=== PATIENT | female | born 1990 | race Caucasian/White ===

== ENCOUNTER 2016-11-03 04:09 | Emergency (ER) | payer OTHER ==
[~2016-11-03] VITALS: Ht 170.2 cm; Wt 66.0 kg
[~2016-11-03 04:09] MED LIST: ALBU17I INH; ALBU6.7H INH; MACR100C PO; PYRI200T4 PO; Z.0.BCPILL PO
[2016-11-03 04:10] VITALS: BP 155/99; PULSE 84; RESP 16; TEMP 98.1; O2SAT 99
[2016-11-03 04:24] VITALS: BP 121/67
[2016-11-03] MEDS ORDERED: ALBU.5I NEB (04:29)
[2016-11-03] MEDS ORDERED: ALBU6.7H INH (04:29)
[2016-11-03] MEDS ORDERED: PENI500T PO (04:35)
--- NOTE | 2016-11-03 04:39 | PD ---
HPI Chief Complaint: Cold / Flu Symptoms Time Seen by Provider: 04:26 Travel History International Travel<30 days: No Contact w/Intl Traveler<30days: No Traveled to known affect area: No History of Present Illness HPI 26-year-old white female who states that she is approximately 6 weeks presents to emergency department with a three-day history of sore throat. She states that in addition to her sore throat today she developed a low-grade temperature 100. She admits to feeling general malaise, nausea and upset stomach, cough, nasal congestion. She states that she assumes a lot of her symptoms are associated with early . She denies vomiting. No abdominal pain. No leakage of fluid or abnormal bleeding. No urinary symptoms. No shortness of breath or wheezing. PFSH Past Medical History Asthma: Yes Cardiovascular Problems: Yes (MURMUR, LOOP RECORDER IN PLACE) Diminished Hearing: No Genitourinary: Yes (FREQ UTI's) Immunizations Current: Yes ?: : 3 Para: 1 Miscarriage: 1 Past Surgical History Section: Yes Social History Alcohol Use: No Tobacco Use: No Substance Use: No Allergies-Medications (Allergen,Severity, Reaction): Coded Allergies: metronidazole (Verified Allergy, Severe, 11/03/16) Reported Meds & Prescriptions Reported Meds & Active Scripts Active Reported Albuterol Neb (Albuterol Sulfate) 2.5 Mg/0.5 Ml Neb 2.5 Mg NEB Q4HR NEB PRN Note: The Albuterol Sulfate Inhalation Solution is concentrated and must be diluted. Read complete instructions carefully before using. Proventil Hfa 6.7 GM Inh (Albuterol Sulfate) 90 Mcg/Act Aer 2 Puff INH Q6H PRN Review of Systems Except as stated in HPI: all other systems reviewed are Neg Physical Exam Narrative GENERAL: Well-developed, well-nourished in no acute distress. Nontoxic appearing. HEAD: Normocephalic, atraumatic. EYES: Pupils equal round and reactive. Extraocular motions intact. No scleral icterus. No injection or drainage. ENT: TMs clear without erythema. The external auditory canals clear. Nose: clear . Posterior pharynx is pink and moist. No tonsillar edema or exudate. Uvula midline. Airway patent. NECK: Trachea midline.Supple, nontender, moves head freely. No central bony tenderness or spasm. CARDIOVASCULAR: Regular rate and rhythm without murmurs, gallops, or rubs. RESPIRATORY: Clear to auscultation. Breath sounds equal bilaterally. No wheezes , rales, or rhonchi. GASTROINTESTINAL: Abdomen soft, non-tender, nondistended. No hepato-splenomegaly , or palpable masses. No guarding. EXTREMITIES: No clubbing, cyanosis, or edema. No joint tenderness, effusion, or edema noted. BACK: Nontender without deformity or crepitance. No flank tenderness. Data Data Last Documented VS Vital Signs Date Time Temp Pulse Resp B/P (MAP) Pulse Ox O2 Delivery O2 Flow Rate FiO2 11/03/16 04:24 121/67 (85) 11/03/16 04:10 98.1 84 16 99 Room Air Orders Orders Penicillin V Potassium (Veetids) (11/03/16 04:45) Acetaminophen (Tylenol) (11/03/16 04:45) MDM Medical Decision Making Medical Screen Exam Complete: Yes Emergency Medical Condition: Yes Medical Record Reviewed: Yes Differential Diagnosis MDM: High Differential diagnoses: Strep throat, viral pharyngitis, mono Narrative Course Patient is given Pen-Vee K 500 and Tylenol 500 mg by mouth. This acute pharyngitis Diagnosis Primary Impression: Acute pharyngitis Qualified Codes: J02.8 - Acute pharyngitis due to other specified organisms Patient Instructions: General Instructions Additional Instructions: Rest. Force fluids. Saltwater gargles. Tylenol. Pen-Vee K Follow-up with a primary care doctor in one week. Return to the ER if any problems. Med/Other Pt SpecificInfo: Prescription(s) given Scripts Penicillin V Potassium (Penicillin V Potassium) 500 Mg Tab 500 MG PO Q12HR for Infection, #20 TAB 0 Refills Prov: Sandhya Sanabria MD 11/03/16 Disposition: 01 DISCHARGE HOME Condition: Stable Jadiel Lowe Nov 03, 2016 04:39
[2016-11-03] MEDS ORDERED: PENICILLIN V POTASSIUM 500 MG TAB PO ONE (04:45)
[2016-11-03] MEDS ORDERED: ACETAMINOPHEN 500 MG CPLT PO ONE (04:45)
== END 2016-11-03 04:57 | disposition home or self-care (01) ==
LOC: NEPD 04:09
DX: J02.9 Acute pharyngitis, unspecified (principal); R53.81 Other malaise; R11.0 Nausea; K30 Functional dyspepsia; R05 Cough; R09.81 Nasal congestion; J45.909 Unspecified asthma, uncomplicated; Z34.91 Encounter for supervision of normal pregnancy, unspecified, first trimester; Z3A.01 Less than 8 weeks gestation of pregnancy
CPT/HCPCS: 99283

== ENCOUNTER 2017-04-23 12:15 | Emergency (ER) | payer MEDICAID, OTHER ==
[~2017-04-23 12:15] MED LIST changes: +ALBU.5I NEB; -ALBU17I INH; -MACR100C PO; +PENI500T PO; -PYRI200T4 PO; -Z.0.BCPILL PO
[2017-04-23] MEDS ORDERED: LACTATED RINGER'S 1000 ML INJ 1,000 ML IV SCH (14:30)
[2017-04-23] MEDS ORDERED: TERBUTALINE INJ 1 MG/ML AMP SQ ONE (14:30)
[2017-04-23] MEDS ORDERED: ONDANSETRON HCL 4 MG/2 ML VIAL IV PUSH ONE (14:30)
[2017-04-23] MEDS ORDERED: PROT40TA PO (14:38)
[2017-04-23 14:39] LABS: HEMATOCRIT 35.4 % (35.0-46.0); HEMOGLOBIN 12.2 GM/DL (11.6-15.3); MEAN CELL VOLUME 89.5 FL (80.0-100.0); MEAN CORPUSCULAR HEMOGLOBIN 30.9 PG (27.0-34.0); MEAN CORPUSCULAR HGB CONC 34.5 % (32.0-36.0); MEAN PLATELET VOLUME 9.7 FL (7.0-11.0); PLATELET COUNT 228 TH/MM3 (150-450); RED BLOOD COUNT 3.95 MIL/MM3 (4.00-5.30); RED CELL DISTRIBUTION WIDTH 13.7 % (11.6-17.2); WHITE BLOOD COUNT 13.4 TH/MM3 (4.0-11.0)
[2017-04-23] MEDS ORDERED: PROM25TA10 PO (14:40)
--- NOTE | 2017-04-23 14:40 | PD ---
HPI Chief Complaint Headache, epigastric pain, heartburn Date Seen: Apr 23, 2017 Time Seen: 14:00 Travel History International Travel<30 Days: No Contact w/Intl Traveler<30Days: No Known Affected Area: No History of Present Illness HPI This patient is a 26-year-old white female at [address] Mcdowell care previous for severe preeclampsia at 29 weeks in the last she presents claiming of a persistent frontal headache, some epigastric pain and heartburn relieved with [id number] Zantac. Denies right upper quadrant pain swelling, visual changes. Baby is active heart rate tracing is reactive and there are relatively regular contractions noted on the monitor if the patient is really not noticing except that she says her stomach gets tight. Weeks Gestation: 30 Para: 1 : 3 Last Menstrual Period: Apr 23, 2017 Miscarriage: 1 History Obstetric History Obstetric History At 29 weeks patient last is emergency for severe preeclampsia Past Surgical History Narrative Surgical Surgical History: No Previous Surgery Social History Alcohol Use: No Tobacco Use: No Substance Abuse: No Allergies-Medications (Allergen,Severity, Reaction): Coded Allergies: metronidazole (Verified Allergy, Severe, 11/03/16) Home Meds Active Scripts Penicillin V Potassium (Penicillin V Potassium) 500 Mg Tab, 500 MG PO Q12HR for Infection, #20 TAB 0 Refills Prov:Sandhya Sanabria MD 11/03/16 Reported Medications Albuterol Neb (Albuterol Neb) 2.5 Mg/0.5 Ml Neb, 2.5 MG NEB Q4HR NEB Y for SHORTNESS OF BREATH, EA Note: The Albuterol Sulfate Inhalation Solution is concentrated and must be diluted. Read complete instructions carefully before using. 11/03/16 Albuterol 6.7 GM Inh (Proventil Hfa 6.7 GM Inh) 90 Mcg/Act Aer, 2 PUFF INH Q6H Y for SHORTNESS OF BREATH, #1 INHALER 0 Refills 11/03/16 Review of Systems General / Constitutional: No: Fever, Weight Gain, Chills, Other Eyes: No: Diploplia, Blurred Vision, Visual changes, Pain, Photophobia HENT: Headaches, No: Vertigo, Lightheadedness Cardiovascular: No: Irregular Rhythm, Chest Pain or Discomfort, Palpitations, Tachycardia, Syncope, Varicosities, Edema, Cyanosis Respiratory: No: Cough, Short of Breath, Other Gastrointestinal: Indigestion, No: Nausea, Vomiting, Diarrhea Genitourinary: No: Decreased Urinary Output, Oliguria Musculoskeletal: No: Limited ROM, Weakness, Cramping, Edema, Pain Skin: No Rash, No Itching, No Dryness, No Lumps, No Change in Pigmentation, No Change in Nails, No Alopecia, No Lesions Neurologic: No: Weakness, Dizziness, Syncope, Focal Abnormalities, Coordination Problem, Headache, Slurred Speech, Seizures Psychiatric: No: Depression, Suicidal Ideations, Homicidal Ideation Endocrine: No: Heat Intolerance, Cold Intolerance, Polydipsia, Polyuria, Other Physical Exam Narrative GENERAL: Well-nourished, well-developed patient. SKIN: Warm and dry. HEAD: Normocephalic and atraumatic. EYES: No scleral icterus. No injection or drainage. ENT: No nasal drainage noted. Mucous membranes pink. Airway patent. NECK: Supple, trachea midline. No JVD. CARDIOVASCULAR: Regular rate and rhythm without murmurs, gallops, or rubs. RESPIRATORY: Breath sounds equal bilaterally. No accessory muscle use. BREASTS: Bilateral exam showed no masses , no retractions, no nipple discharge. ABDOMEN/GI: Abdomen soft, non-tender, bowel sounds present, no rebound, no guarding Gravid to [-30] weeks size Fundal Height: [30-] GENITOURINARY: External Genitalia: intact and normal in appearance BUS glands: [-] Cervix: [post-] Dilatation: [0-] Effacement: [0-] Station: [-3] Membranes: [intact ] Uterine Contractions: [-q 3min initially] FHT's: Category: [-1] Baseline: [133-] Reactive: [R-] Variability: [-mod] Decels: [none-] EXTREMITIES: No cyanosis or edema. BACK: Nontender without obvious deformity. No CVA tenderness. NEUROLOGICAL: Awake and alert. Motor and sensory grossly within normal limits. Five out of 5 muscle strength in all muscle groups. Normal speech. Data Data Orders Orders Cbc No Diff, Includes Plts (04/23/17 13:12) Comprehensive Metabolic Panel (04/23/17 13:13) Uric Acid (04/23/17 13:13) Vital Signs (Adult) .ON ADMISSION (04/23/17 13:33) ^ Labor Status (04/23/17 13:33) ^ Non Stress Test (04/23/17 13:33) ^ Hydration (04/23/17 13:33) Lactated Ringer's 1000 Ml Inj (Lr 1000 M (04/23/17 13:33) Ondansetron Inj (Zofran Inj) (04/23/17 13:45) Terbutaline Inj (Brethine Inj) (04/23/17 13:45) Fentanyl Inj (Fentanyl Inj) (04/23/17 13:45) Labs Urine dip on OPD is negative for protein MDM Interpretation(s) Patient is 26-year-old white female at [address] Mcdowell care. Patient's previous section for previous severe preeclampsia 29 weeks. She has been followed closely this Dr. Mcdowell is worried she might try to get preeclamptic again because she had headaches and epigastric pain. However blood pressures are normal 120/50 111/60 120/62. She has no protein in urine, PIH lab is negative However she was ruth every 3 minutes and felt that these needed to be addressing that she was really feeling much this filter may be balling up getting tight and she was ruth on the monitor so she received the basic triage tocolyse with IV fluids subcu TERB and IV fentanyl. Plan Patient received above-mentioned tocolytics. The contractions decreased and are this point not an issue for her, heart tones are still within normal limits. Lab all within normal limits her blood pressures is totally normal plan to give the patient prescription for Protonix needed a prescription antacid as well as some p.o. Phenergan for nausea noted at home. And she will follow up with Dr. Mcdowell Diagnosis Diagnosis: Primary Impression: Headache above the eye region Additional Impressions: Threatened premature labor in third trimester Previous section Disposition: 01 DISCHARGE HOME Condition: Stable Scripts Promethazine (Phenergan) 25 Mg Tablet 25 MG PO Q6H Y for NAUSEA OR VOMITING for 10 Days, #60 TAB 1 Refill Prov: Ubaldo Bernal II, MD 04/23/17 Pantoprazole (Protonix) 40 Mg Tab 40 MG PO DAILY for Reflux for 30 Days, #30 TAB 1 Refill Prov: Ubaldo Bernal II, MD 04/23/17 Ubaldo Bernal II, MD Apr 23, 2017 14:40
[2017-04-23 15:03] LABS: ALBUMIN 3.3 GM/DL (3.4-5.0); AST (GOT) 20 U/L (15-37); BICARBONATE 22.4 MEQ/L (21.0-32.0); BLOOD UREA NITROGEN 5 MG/DL (7-18); CALCIUM 9.3 MG/DL (8.5-10.1); CHLORIDE 103 MEQ/L (98-107); CREATININE 0.46 MG/DL (0.50-1.00); GLOMERULAR FILTRATION RATE 164 ML/MIN (>89); GLUCOSE,RANDOM 68 MG/DL (74-106); SODIUM (NA) 137 MEQ/L (136-145)
[2017-04-23 15:04] LABS: ALT (GPT) 25 U/L (10-53)
[2017-04-23 15:07] LABS: ALKALINE PHOSPHATASE 141 U/L (45-117); TOTAL BILIRUBIN ADULT 0.2 MG/DL (0.2-1.0); TOTAL PROTEIN 7.8 GM/DL (6.4-8.2)
[2017-04-23 15:19] VITALS: BP 127/63; PULSE 72
== END 2017-04-23 15:30 | disposition home or self-care (01) ==
LOC: HOBED 12:15
DX: O26.893 Other specified pregnancy related conditions, third trimester (principal); R51 Headache; O47.03 False labor before 37 completed weeks of gestation, third trimester; Z3A.30 30 weeks gestation of pregnancy; Z88.8 Allergy status to other drugs, medicaments and biological substances
CPT/HCPCS: 80053; 84550; 85027; 96372; 96374; 96375; 99284; J2405; J3010; J3105; J7120

== ENCOUNTER 2017-04-25 15:16 | Emergency (ER) | payer MEDICAID ==
[~2017-04-25] VITALS: Ht 170.2 cm; Wt 72.6 kg
[~2017-04-25 15:16] MED LIST changes: +PROM25TA10 PO; +PROT40TA PO
[2017-04-25] MEDS ORDERED: ONDANSETRON ODT 4 MG TAB PO PRN (16:30)
[2017-04-25] MEDS ORDERED: CALCIUM CARBONATE 500 MG CHEWABLE TAB CHEW PRN (16:30)
[2017-04-25] MEDS ORDERED: TERBUTALINE INJ 1 MG/ML AMP SQ ONE (18:15)
--- NOTE | 2017-04-25 19:04 | PD ---
HPI Chief Complaint heartburn ctxs Date Seen: Apr 25, 2017 Time Seen: 18:58 Travel History International Travel<30 Days: No Contact w/Intl Traveler<30Days: No Known Affected Area: No History of Present Illness HPI pt. is a @ 30 3/7 weeks present w/ c/o heartburn and ctxs. pt. states was here before for heartburn and ctxs, given zofran, terb and hydrated and felt much better. pt. states that began having heartburn again with and ctxs again today. pt. sttes minimal relief with meds taken at home. +FM, no lof/vb Weeks Gestation: 30 Para: 1 : 2 History Past Medical History Medical History: Denies Significant Hx Past Surgical History Surgical History: No Previous Surgery Family History Family History: Negative Social History Alcohol Use: No Tobacco Use: No Substance Abuse: No Allergies-Medications (Allergen,Severity, Reaction): Coded Allergies: metronidazole (Verified Allergy, Severe, 11/03/16) Home Meds Active Scripts Promethazine (Phenergan) 25 Mg Tablet, 25 MG PO Q6H Y for NAUSEA OR VOMITING for 10 Days, #60 TAB 1 Refill Prov:Ubaldo Bernal II, MD 04/23/17 Pantoprazole (Protonix) 40 Mg Tab, 40 MG PO DAILY for Reflux for 30 Days, #30 TAB 1 Refill Prov:Ubaldo Bernal II, MD 04/23/17 Reported Medications Albuterol Neb (Albuterol Neb) 2.5 Mg/0.5 Ml Neb, 2.5 MG NEB Q4HR NEB Y for SHORTNESS OF BREATH, EA Note: The Albuterol Sulfate Inhalation Solution is concentrated and must be diluted. Read complete instructions carefully before using. 11/03/16 Albuterol 6.7 GM Inh (Proventil Hfa 6.7 GM Inh) 90 Mcg/Act Aer, 2 PUFF INH Q6H Y for SHORTNESS OF BREATH, #1 INHALER 0 Refills 11/03/16 Discontinued Scripts Penicillin V Potassium (Penicillin V Potassium) 500 Mg Tab, 500 MG PO Q12HR for Infection, #20 TAB 0 Refills Prov:Sandhya Sanabria MD 11/03/16 Review of Systems Except as stated in HPI: all other systems reviewed are Neg Physical Exam Narrative GENERAL: Well-nourished, well-developed patient. SKIN: Warm and dry. HEAD: Normocephalic and atraumatic. EYES: No scleral icterus. No injection or drainage. ENT: No nasal drainage noted. Mucous membranes pink. Airway patent. NECK: Supple, trachea midline. No JVD. CARDIOVASCULAR: Regular rate and rhythm without murmurs, gallops, or rubs. RESPIRATORY: Breath sounds equal bilaterally. No accessory muscle use. ABDOMEN/GI: Abdomen soft, non-tender, bowel sounds present, no rebound, no guarding Gravid GENITOURINARY: FHT's/ TOCO: Category: 1 Reactive: + Variability: mod Decels: none EXTREMITIES: No cyanosis or edema. BACK: Nontender without obvious deformity. No CVA tenderness. NEUROLOGICAL: Awake and alert. Motor and sensory grossly within normal limits. Five out of 5 muscle strength in all muscle groups. Normal speech. Data Data Vital Signs Reviewed: Yes Orders Orders Ondansetron Odt (Zofran Odt) (04/25/17 16:30) Calcium Carbonate Chew (Tums Chew) (04/25/17 16:30) Terbutaline Inj (Brethine Inj) (04/25/17 18:15) MDM Medical Record Reviewed: Yes Plan pt. given zofran, tums terbutaline and hydrated and she feels much better. fht reassuring. condition d/w pt. pt. to be d/c to home. given precautions for return. all ? answered. f/u as sched. Diagnosis Diagnosis: Primary Impression: Heartburn during in third trimester Additional Impression: uterine contractions Disposition: DISCHARGE HOME Archie Martínez Jr., MD Apr 25, 2017 19:04
== END 2017-04-25 19:20 | disposition home or self-care (01) ==
LOC: HOBED 15:16
DX: O26.893 Other specified pregnancy related conditions, third trimester (principal); R12 Heartburn; O47.03 False labor before 37 completed weeks of gestation, third trimester; Z3A.30 30 weeks gestation of pregnancy
CPT/HCPCS: 96372; 99283; J3105

== ENCOUNTER 2017-04-27 11:01 | Emergency (ER) | payer MEDICAID ==
[~2017-04-27 11:01] MED LIST changes: -PENI500T PO
--- NOTE | 2017-04-27 12:41 | PD ---
HPI Chief Complaint increased bp Date Seen: Apr 27, 2017 Time Seen: 12:38 Travel History International Travel<30 Days: No Contact w/Intl Traveler<30Days: No Known Affected Area: No History of Present Illness HPI pt. is a at 30 6/7 weeks presents as a referral from dr. miles 2/2 increased bp. pt. was to have noted htn and brisk reflexes in office. pt. previously seen for heart burn. Pt. denies n/v, cp/sob, guzman/visual changes, voiding probs. +FM, no lof/vb. Weeks Gestation: 30 Para: 1 : 3 History Past Medical History Medical History: Denies Significant Hx Past Surgical History Surgical History: No Previous Surgery Family History Family History: Negative Social History Alcohol Use: No Tobacco Use: No Substance Abuse: No Allergies-Medications (Allergen,Severity, Reaction): Coded Allergies: metronidazole (Verified Allergy, Severe, 04/27/17) Home Meds Active Scripts Promethazine (Phenergan) 25 Mg Tablet, 25 MG PO Q6H Y for NAUSEA OR VOMITING for 10 Days, #60 TAB 1 Refill Prov:Ubaldo Bernal II, MD 04/23/17 Pantoprazole (Protonix) 40 Mg Tab, 40 MG PO DAILY for Reflux for 30 Days, #30 TAB 1 Refill Prov:Ubaldo Bernal II, MD 04/23/17 Reported Medications Albuterol Neb (Albuterol Neb) 2.5 Mg/0.5 Ml Neb, 2.5 MG NEB Q4HR NEB Y for SHORTNESS OF BREATH, EA Note: The Albuterol Sulfate Inhalation Solution is concentrated and must be diluted. Read complete instructions carefully before using. 11/03/16 Albuterol 6.7 GM Inh (Proventil Hfa 6.7 GM Inh) 90 Mcg/Act Aer, 2 PUFF INH Q6H Y for SHORTNESS OF BREATH, #1 INHALER 0 Refills 11/03/16 Discontinued Scripts Penicillin V Potassium (Penicillin V Potassium) 500 Mg Tab, 500 MG PO Q12HR for Infection, #20 TAB 0 Refills Prov:Sandhya Sanabria MD 11/03/16 Review of Systems Except as stated in HPI: all other systems reviewed are Neg Physical Exam Narrative GENERAL: Well-nourished, well-developed patient. SKIN: Warm and dry. HEAD: Normocephalic and atraumatic. EYES: No scleral icterus. No injection or drainage. ENT: No nasal drainage noted. Mucous membranes pink. Airway patent. NECK: Supple, trachea midline. No JVD. CARDIOVASCULAR: Regular rate and rhythm without murmurs, gallops, or rubs. RESPIRATORY: Breath sounds equal bilaterally. No accessory muscle use. ABDOMEN/GI: Abdomen soft, non-tender, bowel sounds present, no rebound, no guarding Gravid FHT's: Category: 1 Reactive: + Variability: mod Decels: none EXTREMITIES: No cyanosis or edema. BACK: Nontender without obvious deformity. No CVA tenderness. NEUROLOGICAL: Awake and alert. Motor and sensory grossly within normal limits. Five out of 5 muscle strength in all muscle groups. Normal speech. Data Data Vital Signs Reviewed: Yes Orders Orders Cbc No Diff, Includes Plts (04/27/17 11:44) Comprehensive Metabolic Panel (04/27/17 11:44) Uric Acid (04/27/17 11:44) Urinalysis - C+S If Indicated (04/27/17 11:44) [facility] Medical Record Reviewed: Yes Plan pt. have urine dip - for protein and nl bp. condition d/w pt. all ? answered. pt. to be d/c to home. given precautions for return. f/u as sched. Diagnosis Diagnosis: Primary Impression: Hypertension affecting Additional Impression: 30 weeks gestation of Disposition: DISCHARGE HOME Archie Martínez Jr., MD Apr 27, 2017 12:41
[2017-04-27 12:54] LABS: HEMATOCRIT 31.9 % (35.0-46.0); HEMOGLOBIN 11.1 GM/DL (11.6-15.3); MEAN CELL VOLUME 89.7 FL (80.0-100.0); MEAN CORPUSCULAR HEMOGLOBIN 31.4 PG (27.0-34.0); MEAN PLATELET VOLUME 9.6 FL (7.0-11.0); PLATELET COUNT 195 TH/MM3 (150-450); RED BLOOD COUNT 3.55 MIL/MM3 (4.00-5.30); RED CELL DISTRIBUTION WIDTH 13.5 % (11.6-17.2); WHITE BLOOD COUNT 10.8 TH/MM3 (4.0-11.0)
[2017-04-27 13:33] LABS: ALBUMIN 2.8 GM/DL (3.4-5.0); ALT (GPT) 28 U/L (10-53); AST (GOT) 26 U/L (15-37); BICARBONATE 23.8 MEQ/L (21.0-32.0); BLOOD UREA NITROGEN 5 MG/DL (7-18); CALCIUM 8.7 MG/DL (8.5-10.1); CHLORIDE 107 MEQ/L (98-107); CREATININE 0.44 MG/DL (0.50-1.00); GLOMERULAR FILTRATION RATE 173 ML/MIN (>89); GLUCOSE,RANDOM 75 MG/DL (74-106); SODIUM (NA) 138 MEQ/L (136-145)
[2017-04-27 13:35] LABS: ALKALINE PHOSPHATASE 121 U/L (45-117); TOTAL BILIRUBIN ADULT 0.2 MG/DL (0.2-1.0); TOTAL PROTEIN 6.9 GM/DL (6.4-8.2)
== END 2017-04-27 14:00 | disposition home or self-care (01) ==
LOC: HOBED 11:01
DX: O16.3 Unspecified maternal hypertension, third trimester (principal); Z3A.30 30 weeks gestation of pregnancy
CPT/HCPCS: 36415; 80053; 84550; 85027; 99283

== ENCOUNTER 2017-04-30 12:24 | Emergency (ER) | payer MEDICAID ==
--- NOTE | 2017-04-30 13:19 | PD ---
HPI Chief Complaint Possible contractions Date Seen: Apr 30, 2017 Time Seen: 13:15 Travel History International Travel<30 Days: No Contact w/Intl Traveler<30Days: No Known Affected Area: No History of Present Illness HPI 26-year-old 3 para 1 at 31-2/7 weeks gestation who comes today for possible contractions. She denies leakage of fluid, bleeding or decreased movement. History Past Medical History Medical History: Denies Significant Hx Obstetric History Obstetric History Current under the care of Dr. Mcdowell She is having GERD Her 5-year-old son was delivered by at 29 weeks for severe preeclampsia Recent preeclamptic evaluation this was negative. Past Surgical History Narrative Surgical Family History Family History: Negative Social History Alcohol Use: No Tobacco Use: No Substance Abuse: No Allergies-Medications (Allergen,Severity, Reaction): Coded Allergies: metronidazole (Verified Allergy, Severe, 04/27/17) Home Meds Active Scripts Promethazine (Phenergan) 25 Mg Tablet, 25 MG PO Q6H Y for NAUSEA OR VOMITING for 10 Days, #60 TAB 1 Refill Prov:Ubaldo Bernal II, MD 04/23/17 Pantoprazole (Protonix) 40 Mg Tab, 40 MG PO DAILY for Reflux for 30 Days, #30 TAB 1 Refill Prov:Ubaldo Bernal II, MD 04/23/17 Reported Medications Albuterol Neb (Albuterol Neb) 2.5 Mg/0.5 Ml Neb, 2.5 MG NEB Q4HR NEB Y for SHORTNESS OF BREATH, EA Note: The Albuterol Sulfate Inhalation Solution is concentrated and must be diluted. Read complete instructions carefully before using. 11/03/16 Albuterol 6.7 GM Inh (Proventil Hfa 6.7 GM Inh) 90 Mcg/Act Aer, 2 PUFF INH Q6H Y for SHORTNESS OF BREATH, #1 INHALER 0 Refills 11/03/16 Discontinued Scripts Penicillin V Potassium (Penicillin V Potassium) 500 Mg Tab, 500 MG PO Q12HR for Infection, #20 TAB 0 Refills Prov:Sandhya Sanabria MD 11/03/16 Review of Systems Except as stated in HPI: all other systems reviewed are Neg Physical Exam Narrative GENERAL: Well-nourished, well-developed patient. SKIN: Warm and dry. HEAD: Normocephalic and atraumatic. EYES: No scleral icterus. No injection or drainage. ENT: No nasal drainage noted. Mucous membranes pink. Airway patent. NECK: Supple, trachea midline. No JVD. CARDIOVASCULAR: Regular rate and rhythm without murmurs, gallops, or rubs. RESPIRATORY: Breath sounds equal bilaterally. No accessory muscle use. ABDOMEN/GI: Abdomen soft, non-tender, bowel sounds present, no rebound, no guarding Gravid to [-] weeks size Fundal Height: [32-] GENITOURINARY: External Genitalia: intact and normal in appearance BUS glands: [-Negative] Cervix: [-] Dilatation: [-] Effacement: [-] Station: [-] Presentation: [-] Membranes: [ ruptured] Uterine Contractions: [-] FHT's: Category: [-] Baseline: [-] Reactive: [-] Variability: [-] Decels: [-] EXTREMITIES: No cyanosis or edema. BACK: Nontender without obvious deformity. No CVA tenderness. NEUROLOGICAL: Awake and alert. Motor and sensory grossly within normal limits. Five out of 5 muscle strength in all muscle groups. Normal speech. Data Data Orders Orders Fibronectin (04/30/17 13:12) MDM Medical Record Reviewed: Yes Narrative Course / MDM Assessment: 31+ weeks gestation with uterine irritability Plan: Negative fibronectin and diminished perception of contractions by the patient since arrival. She'll be discharged home with labor precautions. Diagnosis Diagnosis: Primary Impression: 31 weeks gestation of Additional Impression: Irregular uterine contractions Disposition: 01 DISCHARGE HOME Condition: Good Nikko Cadena MD Apr 30, 2017 13:19
== END 2017-04-30 14:26 | disposition home or self-care (01) ==
LOC: HOBED 12:24
DX: O47.03 False labor before 37 completed weeks of gestation, third trimester (principal); Z3A.31 31 weeks gestation of pregnancy
CPT/HCPCS: 82731; 99283

== ENCOUNTER → 2017-05-17 | Outpatient (CLI) | payer MEDICAID | LOC: HPND 08:40 | PROVIDERS: ATTEND Obstetrics & Gynecology | DX: O09.213 Supervision of pregnancy with history of pre-term labor, third trimester (principal); O09.293 Supervision of pregnancy with other poor reproductive or obstetric history, third trimester | CPT/HCPCS: 76816 ==

== ENCOUNTER 2017-05-18 08:19 | Emergency (ER) | payer MEDICAID ==
[2017-05-18] MEDS ORDERED: DEXTROSE 5%-LACTATED RING INJ 1,000 ML IV SCH (09:15)
[2017-05-18 09:50] LABS: AUTOMATED NEUTROPHIL # 9.8 TH/MM3 (1.8-7.7); BASOPHIL % 0.4 % (0.0-2.0); EOSINOPHIL % 0.1 % (0.0-4.0); HEMATOCRIT 34.3 % (35.0-46.0); HEMOGLOBIN 11.8 GM/DL (11.6-15.3); LYMPH % 7.4 % (9.0-44.0); LYMPHOCYTE # 0.8 TH/MM3 (1.0-4.8); MEAN CELL VOLUME 88.3 FL (80.0-100.0); MEAN CORPUSCULAR HEMOGLOBIN 30.4 PG (27.0-34.0); MEAN CORPUSCULAR HGB CONC 34.5 % (32.0-36.0); MEAN PLATELET VOLUME 9.9 FL (7.0-11.0); MONO % 6.1 % (0.0-8.0); MONOCYTE # 0.7 TH/MM3 (0-0.9); PLATELET COUNT 191 TH/MM3 (150-450); RED BLOOD COUNT 3.89 MIL/MM3 (4.00-5.30); RED CELL DISTRIBUTION WIDTH 13.5 % (11.6-17.2); WHITE BLOOD COUNT 11.4 TH/MM3 (4.0-11.0)
[2017-05-18 10:01] LABS: BILIRUBIN, URINE NEG (NEG); BLOOD, URINE NEG (NEG); GLUCOSE,URINE NEG (NEG); KETONE, URINE TRACE mg/dL (NEG); NITRITE,URINE NEG (NEG); PH, URINE 6.5 (5.0-8.5); SQUAMOUS EPITHELIAL CELL URINE 4 /hpf (0-5); URINE COLOR YELLOW (YELLW/STRAW); URINE LEUKOCYTE ESTERASE MOD (NEG)
[2017-05-18 10:09] LABS: ALT (GPT) 21 U/L (10-53)
[2017-05-18 10:12] LABS: ALKALINE PHOSPHATASE 155 U/L (45-117); TOTAL BILIRUBIN ADULT 0.5 MG/DL (0.2-1.0); TOTAL PROTEIN 7.3 GM/DL (6.4-8.2)
[2017-05-18 10:14] LABS: ALBUMIN 2.8 GM/DL (3.4-5.0); AST (GOT) 27 U/L (15-37); BICARBONATE 19.9 MEQ/L (21.0-32.0); BLOOD UREA NITROGEN 6 MG/DL (7-18); CALCIUM 8.7 MG/DL (8.5-10.1); CHLORIDE 106 MEQ/L (98-107); CREATININE 0.51 MG/DL (0.50-1.00); GLOMERULAR FILTRATION RATE 146 ML/MIN (>89); GLUCOSE,RANDOM 77 MG/DL (74-106); SODIUM (NA) 136 MEQ/L (136-145)
[2017-05-18] MEDS ORDERED: ONDANSETRON ODT 4 MG TAB SL ONE (11:45)
--- NOTE | 2017-05-18 12:03 | PD ---
HPI Chief Complaint diarrhea. Date Seen: May 18, 2017 Time Seen: 11:50 Travel History International Travel<30 Days: No Contact w/Intl Traveler<30Days: No Known Affected Area: No History of Present Illness HPI pt is a 26 y/o @ 33 5/7 weeks present w/ c/o nausea and diarrhea. pt. states for the last 2 days has had constant loose stools. pt. states not sure what caused loose stools. has not been able to keep anything down. +FM, occasional ctx, no vb. denies fever/chills. Weeks Gestation: 33 Para: 1 : 3 History Past Medical History Medical History: Denies Significant Hx Past Surgical History Surgical History: No Previous Surgery Family History Family History: Negative Social History Alcohol Use: No Tobacco Use: No Substance Abuse: No Allergies-Medications (Allergen,Severity, Reaction): Coded Allergies: metronidazole (Verified Allergy, Severe, 04/27/17) Home Meds Active Scripts Promethazine (Phenergan) 25 Mg Tablet, 25 MG PO Q6H Y for NAUSEA OR VOMITING for 10 Days, #60 TAB 1 Refill Prov:Ubaldo Bernal II, MD 04/23/17 Pantoprazole (Protonix) 40 Mg Tab, 40 MG PO DAILY for Reflux for 30 Days, #30 TAB 1 Refill Prov:Ubaldo Bernal II, MD 04/23/17 Reported Medications Albuterol Neb (Albuterol Neb) 2.5 Mg/0.5 Ml Neb, 2.5 MG NEB Q4HR NEB Y for SHORTNESS OF BREATH, EA Note: The Albuterol Sulfate Inhalation Solution is concentrated and must be diluted. Read complete instructions carefully before using. 11/03/16 Albuterol 6.7 GM Inh (Proventil Hfa 6.7 GM Inh) 90 Mcg/Act Aer, 2 PUFF INH Q6H Y for SHORTNESS OF BREATH, #1 INHALER 0 Refills 11/03/16 Review of Systems Except as stated in HPI: all other systems reviewed are Neg Physical Exam Narrative GENERAL: Well-nourished, well-developed patient. SKIN: Warm and dry. HEAD: Normocephalic and atraumatic. EYES: No scleral icterus. No injection or drainage. ENT: No nasal drainage noted. Mucous membranes pink. Airway patent. NECK: Supple, trachea midline. No JVD. CARDIOVASCULAR: Regular rate and rhythm without murmurs, gallops, or rubs. RESPIRATORY: Breath sounds equal bilaterally. No accessory muscle use. BREASTS: Bilateral exam showed no masses , no retractions, no nipple discharge. ABDOMEN/GI: Abdomen soft, non-tender, bowel sounds present, no rebound, no guarding Gravid Uterine Contractions: irreg FHT's: Category: 1 Reactive: + Variability: mod EXTREMITIES: No cyanosis or edema. BACK: Nontender without obvious deformity. No CVA tenderness. NEUROLOGICAL: Awake and alert. Motor and sensory grossly within normal limits. Five out of 5 muscle strength in all muscle groups. Normal speech. Data Data Orders Orders Complete Blood Count With Diff (05/18/17 09:06) Comprehensive Metabolic Panel (05/18/17 09:06) Urinalysis - C+S If Indicated (05/18/17 09:06) Dextrose 5%-Lactated Ring Inj (D5-Lr Inj (05/18/17 09:15) Ondansetron Odt (Zofran Odt) (05/18/17 11:45) Labs Laboratory Tests Test 05/18/17 08:35 White Blood Count 11.4 Red Blood Count 3.89 Hemoglobin 11.8 Hematocrit 34.3 Mean Corpuscular Volume 88.3 Mean Corpuscular Hemoglobin 30.4 Mean Corpuscular Hemoglobin Concent 34.5 Red Cell Distribution Width 13.5 Platelet Count 191 Mean Platelet Volume 9.9 Neutrophils (%) (Auto) 86.0 Lymphocytes (%) (Auto) 7.4 Monocytes (%) (Auto) 6.1 Eosinophils (%) (Auto) 0.1 Basophils (%) (Auto) 0.4 Neutrophils # (Auto) 9.8 Lymphocytes # (Auto) 0.8 Monocytes # (Auto) 0.7 Eosinophils # (Auto) 0.0 Basophils # (Auto) 0.0 CBC Comment DIFF FINAL Differential Comment Urine Color YELLOW Urine Turbidity CLEAR Urine pH 6.5 Urine Specific [place] 1.011 Urine Protein NEG Urine Glucose (UA) NEG Urine Ketones TRACE Urine Occult Blood NEG Urine Nitrite NEG Urine Bilirubin NEG Urine Urobilinogen LESS THAN 2.0 Urine Leukocyte Esterase MOD Urine RBC 1 Urine WBC 2 Urine Squamous Epithelial Cells 4 Microscopic Urinalysis Comment CULT NOT INDICATED Blood Urea Nitrogen 6 Creatinine 0.51 Random Glucose 77 Total Protein 7.3 Albumin 2.8 Calcium Level 8.7 Alkaline Phosphatase 155 Aspartate Amino Transf (AST/SGOT) 27 Alanine Aminotransferase (ALT/SGPT) 21 Total Bilirubin 0.5 Sodium Level 136 Potassium Level 3.7 Chloride Level 106 Carbon Dioxide Level 19.9 Anion Gap 10 Estimat Glomerular Filtration Rate 146 MDM Medical Record Reviewed: Yes Plan pt. receive 1 liter of fluid. pt. have sl zofran. pt. to be d/c home. pt. given precautions for return. pt. to f/u as sched. Diagnosis Diagnosis: Primary Impression: Nausea Additional Impressions: Diarrhea 33 weeks gestation of Disposition: DISCHARGE HOME Archie Martínez Jr., MD May 18, 2017 12:02
== END 2017-05-18 12:00 | disposition home or self-care (01) ==
LOC: HOBED 08:19
DX: O26.893 Other specified pregnancy related conditions, third trimester (principal); R11.0 Nausea; R19.7 Diarrhea, unspecified; Z3A.33 33 weeks gestation of pregnancy; Z88.8 Allergy status to other drugs, medicaments and biological substances
CPT/HCPCS: 59025; 80053; 81001; 85025; 96360; 96361; 99284; J7121

== ENCOUNTER 2017-06-28 09:46 | Inpatient (IN) | payer MEDICAID, OTHER ==
[~2017-06-28] VITALS: Ht 170.2 cm; Wt 79.8 kg
[2017-06-28] MEDS ORDERED: LACTATED RINGER'S 1000 ML INJ 1,000 ML IV ONE (09:56)
[2017-06-28 10:05] VITALS: RESP 18; TEMP 98.2
--- NOTE | 2017-06-28 10:06 | HHI.HP ---
HPI Chief Complaint Repeat and BTL Date Seen: June 28, 2017 Travel History International Travel<30 Days: No Contact w/Intl Traveler<30Days: No History of Present Illness HPI Patient is a 26 year old at 39-4/7 weeks gestation who presents today for repeat and bilateral tubal ligation. She denies any vaginal bleeding or discharge. No gush or leaking of fluid. Positive movement. Occasional contractions. No complications with this . History Past Medical History Narrative Medical GERD Asthma Obstetric History Obstetric History at 29-4/7 weeks for eclampsia 2011 Miscarriage 2009 Past Surgical History Narrative Surgical Family History Family History: Negative Social History Alcohol Use: No Tobacco Use: No Substance Abuse: No Allergies-Medications (Allergen,Severity, Reaction): Coded Allergies: metronidazole (Verified Allergy, Severe, 06/28/17) Home Meds Active Scripts Pantoprazole (Protonix) 40 Mg Tab, 40 MG PO DAILY for Reflux for 30 Days, #30 TAB 1 Refill Prov:Ubaldo Bernal II, MD 04/23/17 Reported Medications Vit-Iron Carbonyl ( Plus Iron 29-1 mg) 29 Mg Iron-1 Mg Tab, 1 TAB PO DAILY for Nutritional Supplement, #30 TAB 0 Refills 06/28/17 Aspirin (Aspirin Children's) 81 Mg Chew, 81 MG CHEW DAILY, TAB 0 Refills 06/28/17 Albuterol Neb (Albuterol Neb) 2.5 Mg/0.5 Ml Neb, 2.5 MG NEB Q4HR NEB Y for SHORTNESS OF BREATH, EA Note: The Albuterol Sulfate Inhalation Solution is concentrated and must be diluted. Read complete instructions carefully before using. 11/03/16 Albuterol 6.7 GM Inh (Proventil Hfa 6.7 GM Inh) 90 Mcg/Act Aer, 2 PUFF INH Q6H Y for SHORTNESS OF BREATH, #1 INHALER 0 Refills 11/03/16 Discontinued Scripts Promethazine (Phenergan) 25 Mg Tablet, 25 MG PO Q6H Y for NAUSEA OR VOMITING for 10 Days, #60 TAB 1 Refill Prov:Ubaldo Bernal II, MD 04/23/17 Review of Systems Except as stated in HPI: all other systems reviewed are Neg General / Constitutional: No: Fever, Chills Eyes: No: Blurred Vision, Visual changes Cardiovascular: No: Palpitations Respiratory: No: Short of Breath Gastrointestinal: No: Nausea, Vomiting, Abdominal Pain Genitourinary: No: Dysuria, Pelvic Pain, Discharge, Vaginal Bleeding Musculoskeletal: No: Edema Psychiatric: No: Substance Abuse Physical Exam Narrative GENERAL: Well-nourished, well-developed patient. SKIN: Warm and dry. HEAD: Normocephalic and atraumatic. EYES: No scleral icterus. No injection or drainage. ENT: No nasal drainage noted. Mucous membranes pink. Airway patent. NECK: Supple, trachea midline. No JVD. CARDIOVASCULAR: Regular rate and rhythm without murmurs, gallops, or rubs. RESPIRATORY: Breath sounds equal bilaterally. No accessory muscle use. ABDOMEN/GI: Abdomen soft, non-tender, bowel sounds present, no rebound, no guarding Gravid to 39 weeks size GENITOURINARY: Membranes: intact Uterine Contractions: occasional FHT's: Category: I Baseline: 130 Reactive: + Variability: moderate Decels: none EXTREMITIES: No cyanosis or edema. BACK: Nontender without obvious deformity. NEUROLOGICAL: Awake and alert. Motor and sensory grossly within normal limits. Normal speech. Caprini VTE Risk Assessment Caprini VTE Risk Assessment: No/Low Risk (score <= 1) Caprini Risk Assessment Model Point Value = 1 Point Value = 2 Point Value = 3 Point Value = 5 Age 41-60 Minor surgery BMI > 25 kg/m2 Swollen legs Varicose veins or History of unexplained or recurrent spontaneous Oral contraceptives or hormone replacement Sepsis (< 1 month) Serious lung disease, including pneumonia (< 1 month) Abnormal pulmonary function Acute myocardial infarction Congestive heart failure (< 1 month) History of inflammatory bowel disease Medical patient at bed rest Age 61-74 Arthroscopic surgery Major open surgery (> 45 min) Laparoscopic surgery (> 45 min) Malignancy Confined to bed (> 72 hours) Immobilizing plaster cast Central venous access Age >= 75 History of VTE Family history of VTE Factor V Leiden Prothrombin [id number] Lupus anticoagulant Anticardiolipin antibodies Elevated serum homocysteine Heparin-induced thrombocytopenia Other congenital or acquired thrombophilia Stroke (< 1 month) Elective arthroplasty Hip, pelvis, or leg fracture Acute spinal cord injury (< 1 month) Prophylaxis Regimen Total Risk Factor Score Risk Level Prophylaxis Regimen 0-1 Low Early ambulation 2 Moderate Order ONE of the following: *Sequential Compression Device (SCD) *Heparin 5000 units SQ BID 3-4 Higher Order ONE of the following medications: *Heparin 5000 units SQ TID *Enoxaparin/Lovenox 40 mg SQ daily (WT < 150 kg, CrCl > 30 mL/min) *Enoxaparin/Lovenox 30 mg SQ daily (WT < 150 kg, CrCl > 10-29 mL/min) *Enoxaparin/Lovenox 30 mg SQ BID (WT < 150 kg, CrCl > 30 mL/min) AND/OR *Sequential Compression Device (SCD) 5 or more Highest Order ONE of the following medications: *Heparin 5000 units SQ TID (Preferred with Epidurals) *Enoxaparin/Lovenox 40 mg SQ daily (WT < 150 kg, CrCl > 30 mL/min) *Enoxaparin/Lovenox 30 mg SQ daily (WT < 150 kg, CrCl > 10-29 mL/min) *Enoxaparin/Lovenox 30 mg SQ BID (WT < 150 kg, CrCl > 30 mL/min) AND *Sequential Compression Device (SCD) Data Data Vital Signs Reviewed: Yes Orders Orders Admit To Inpatient (06/28/17 ) Code Status (06/28/17 09:56) Vital Signs (Adult) .ON ADMISSION (06/28/17 09:56) Activity Oob Ad Mavis (06/28/17 09:56) Heart (06/28/17 09:56) Urinary Catheter Management ARLENE.Q8H (06/28/17 09:56) ^ Preps (06/28/17 09:56) Scd / Isidoro / Foot Pump ARLENE.QSHIFT (06/28/17 09:56) ^ Ultrasound For Locatio (06/28/17 09:56) Diet Npo (06/28/17 Breakfast) Lactated Ringer's 1000 Ml Inj (Lr 1000 M (06/28/17 09:56) Lactated Ringer's 1000 Ml Inj (Lr 1000 M (06/28/17 10:26) Cefazolin 2 Gm Premix (Ancef 2 Gm Premix (06/28/17 11:00) Citric Acid-Sodium Citrate Liq (Bicitra (06/28/17 11:30) Type And Screen (06/28/17 09:56) Complete Blood Count With Diff (06/28/17 09:56) Urinalysis - C+S If Indicated (06/28/17 09:56) Drug Screen, Random Urine (06/28/17 09:56) Inpatient Certification (06/28/17 ) Specimen To Be Collected PRN (06/28/17 09:56) Specimen To Be Collected PRN (06/28/17 09:56) Group B Strep: Negative Assessment/Plan Assessment and Plan 26 year old at 39-4/7 weeks gestation. 1. IUP- Category I tracing, reassuring. 2. Repeat and bilateral tubal ligation. 3. History of Eclampsia. 4. GBS negative. dw Winsome Kohler MD R3 June 28, 2017 10:06
[2017-06-28] MEDS ORDERED: PREN29TA PO (10:11)
[2017-06-28] MEDS ORDERED: ASPI81CH7 CHEW (10:11)
[2017-06-28] MEDS ORDERED: LACTATED RINGER'S 1000 ML INJ 1,000 ML IV SCH ×2 (10:26→18:06)
[2017-06-28 10:49] LABS: AUTOMATED NEUTROPHIL # 6.6 TH/MM3 (1.8-7.7); BASOPHIL % 0.4 % (0.0-2.0); EOSINOPHIL % 0.5 % (0.0-4.0); HEMATOCRIT 33.9 % (35.0-46.0); HEMOGLOBIN 11.6 GM/DL (11.6-15.3); LYMPH % 22.9 % (9.0-44.0); LYMPHOCYTE # 2.2 TH/MM3 (1.0-4.8); MEAN CELL VOLUME 88.2 FL (80.0-100.0); MEAN CORPUSCULAR HEMOGLOBIN 30.1 PG (27.0-34.0); MEAN CORPUSCULAR HGB CONC 34.1 % (32.0-36.0); MEAN PLATELET VOLUME 10.1 FL (7.0-11.0); MONO % 7.7 % (0.0-8.0); MONOCYTE # 0.7 TH/MM3 (0-0.9); NEUT % 68.5 % (16.0-70.0); PLATELET COUNT 199 TH/MM3 (150-450); RED BLOOD COUNT 3.85 MIL/MM3 (4.00-5.30); RED CELL DISTRIBUTION WIDTH 14.2 % (11.6-17.2); WHITE BLOOD COUNT 9.7 TH/MM3 (4.0-11.0)
[2017-06-28 10:59] LABS: BACTERIA, URINE OCC /hpf; BILIRUBIN, URINE NEG (NEG); BLOOD, URINE NEG (NEG); GLUCOSE,URINE NEG (NEG); KETONE, URINE NEG (NEG); MUCUS URINE FEW /lpf (OCC); NITRITE,URINE NEG (NEG); SQUAMOUS EPITHELIAL CELL URINE 10 /hpf (0-5); URINE COLOR LIGHT-YELLOW (YELLW/STRAW); URINE LEUKOCYTE ESTERASE MOD (NEG)
[2017-06-28] MEDS ORDERED: ceFAZolin 2 GM PREMIX 50 ML IV SCH (11:00)
[2017-06-28] MEDS ORDERED: CITRIC ACID-SODIUM CITRATE LIQ 30 ML UDC PO SCH (11:30)
[2017-06-28] MEDS ORDERED: MORPHINE SULFATE PF 5 MG/10 ML VIAL ONE (11:52)
[2017-06-28] MEDS ORDERED: ePHEDrine/NS 25 MG/5 ML SYRINGE IV ONE (12:00)
[2017-06-28] MEDS ORDERED: ceFAZolin INJ 1,000 MG VIAL IV ONE (12:00)
[2017-06-28] MEDS ORDERED: ONDANSETRON HCL 4 MG/2 ML VIAL IV PUSH ONE (12:00)
[2017-06-28] MEDS ORDERED: OXYTOCIN 10 UNIT/ML AMP IV ONE (12:00)
[2017-06-28] MEDS ORDERED: PHENYLEPH/NS 1000 MCG/10 ML SYR IV ONE (12:00)
[2017-06-28] MEDS ORDERED: hydrALAZINE HCL 20 MG/ML VIAL IV ONE (12:00)
[2017-06-28] MEDS ORDERED: DEXAMETHASONE SOD PHOS 4 MG/ML VIAL IV ONE (12:00)
[2017-06-28] MEDS ORDERED: EPIDURAL-DIPHENHYDRAMINE HCL 50 MG CAP PO PRN (12:20)
[2017-06-28] MEDS ORDERED: EPIDURAL-DIPHENHYDRAMINE HCL 50 MG/ML VIAL IV PUSH PRN (12:20)
[2017-06-28] MEDS ORDERED: EPIDURAL-NALOXONE HCL 0.4 MG/ML AMP IV PUSH PRN (12:20)
[2017-06-28] MEDS ORDERED: EPIDURAL-DO NOT ADMINISTER ANTICOAGULANTS PRN (12:20)
[2017-06-28] MEDS ORDERED: EPIDURAL-NO SYSTEMIC NARCOTICS PRN (12:20)
[2017-06-28] MEDS ORDERED: CEFAZOLIN INJ 2,000 MG in SODIUM CHLORIDE 0.9% INJ 100 ML IV SCH (13:15)
[2017-06-28] MEDS ORDERED: SODIUM CHLORIDE 0.9% FLUSH 10 ML FLUSH IV FLUSH PRN (13:15)
[2017-06-28] MEDS ORDERED: oxyCODONE/ACETAMINOPHEN 5 MG/325 MG TAB PO PRN (13:15)
[2017-06-28] MEDS ORDERED: SIMETHICONE 80 MG CHEWABLE TAB PO PRN (13:15)
[2017-06-28] MEDS ORDERED: ONDANSETRON HCL 4 MG/2 ML VIAL IV PUSH PRN (13:15)
[2017-06-28] MEDS ORDERED: OXYTOCIN 30 UNITS-500ML PREMIX 500 ML IV ONE (13:15)
[2017-06-28] MEDS ORDERED: ACETAMINOPHEN 325 MG TAB PO PRN (13:15)
[2017-06-28] MEDS ORDERED: ceFAZolin 2 GM/DEX PREMIX 50 ML IV SCH (14:00)
[2017-06-28] MEDS ORDERED: OXYTOCIN 30 UNITS-500ML PREMIX 500 ML ONE (14:03)
[2017-06-28] MEDS ORDERED: ACETAMINOPHEN 1000 MG/100 ML 100 ML IV ONE (14:03)
[2017-06-28 14:35] VITALS: TEMP 97.5
[2017-06-28 15:09] VITALS: BP 119/69; PULSE 51; RESP 20; O2SAT 97
--- NOTE | 2017-06-28 15:14 | PD.OP ---
Operative Report Date of Surgery: June 28, 2017 Preoperative Diagnosis: Postoperative Diagnosis: Procedure: Repeat low transverse section and bilateral tubal ligation Anesthesia: Spinal Surgeon: Pennie Mcdowell MD Dr[employer] Set Up Operator(s): Liza Ascencio Resident Surgeon: Winsome Bartholomew MD Operation and Findings: PREOPERATIVE DIAGNOSIS: 1. Intrauterine at 39-4/7 weeeks gestation. 2. Declined a . 3. Desires permanent sterilization. POSTOPERATIVE DIAGNOSIS: 1. Intrauterine at 39-4/7 weeeks gestation. 2. Declined a . 3. Desires permanent sterilization. OPERATION: 1. Repeat low transverse section. 2. Bilateral tubal ligation. ANESTHESIA: Spinal. SURGEON: Pennie Mcdowell MD. COSURGEON: Winsome Bartholomew MD R3. FINDINGS: A normal male infant with APGARS of 9 and 9, weight 3720g. The uterus was normal. The tubes were normal in length and caliber, the ovaries were normal. The cul-de-sac was normal. COMPLICATIONS: None. COUNTS: The counts were correct. ESTIMATED BLOOD LOSS: 600 cc. FLUIDS: Crystalloids. FINDINGS: The patient tolerated the procedure well, went to the Recovery Room in good condition. PROCEDURE: She was taken to the operating room, identified by name band and verbally given a spinal anesthetic and under adequate level she was prepped and draped in the usual sterile manner for a section. A time out was taken and once agreed upon a Pfannenstiel incision was made and the old scar removed. The incision was taken down to the fascia, the fascia was taken off the rectus muscle by blunt and sharp dissection. The rectus muscles were spread bluntly and the peritoneum was entered under direct vision without difficulty. The incision was extended with care to avoid the urinary bladder. The bladder blade was placed and the bladder flap was created in the usual fashion. A transverse incision along the lower uterine segment was made and bluntly extended. The head was delivered with gentle fundal pressure without difficulty and then the rest of the body was delivered without difficulty. Cord clamping was delayed for 45 seconds and then the baby was handed to the baby nurse. Cord blood was obtained and the placental was delivered manually. The uterus was curettage twice with the wet lap. The uterine incision was then repaired with the 0 Vicryl in a running fashion, the second layer imbricating the first with excellent results. Hemostasis was achieved with several figure of eight sutures and hemostasis was excellent. Attention was then turned to the tubal ligation. The right fallopian tube was gasped with a Dahlgren and a small incision was made in the mesosalpinx and a portion of the tube was tied off with zero chromic catgut and a small piece of tube was removed and sent for pathologic evaluation. This was repeated on the contralateral side. The cul-de-sac was cleaned of blood and debris and the uterus was delivered back into the abdomen. All incisions and pedicles were then inspected and were hemostatic. The rectus muscle was reapproximated with 0 Vicryl in a running fashion. The fascia was repaired with 0 Vicryl in a running fashion. The subcutaneous was repaired in two layers with 2-0 Vicryl and the skin was repaired with 4-0 Monocryl in a subcuticular manner. The patient tolerated the procedure well and went to the recovery room in good condition. All counts were correct. Winsome Bartholomew MD R3 June 28, 2017 15:14
[2017-06-28] MEDS: IBUPROFEN 600 MG TAB PO PRN ×2 (15:29→23:21)
[2017-06-28] MEDS ORDERED: OXYTOCIN 30 UNITS-500ML PREMIX 500 ML IV PRN (18:15)
[2017-06-28] MEDS: oxyCODONE/ACETAMINOPHEN 5 MG/325 MG TAB PO PRN ×2 (18:15→23:22)
[2017-06-28 20:01] VITALS: BP 121/78; PULSE 56; RESP 17; TEMP 97.5
[2017-06-28] MEDS ORDERED: SODIUM CHLORIDE 0.9% FLUSH 10 ML FLUSH IV FLUSH SCH (21:00)
[2017-06-28 23:57] VITALS: BP 114/62; PULSE 51; RESP 17; TEMP 97.8
[2017-06-29 03:57] VITALS: BP 123/71; PULSE 58; RESP 17; TEMP 98.1
[2017-06-29] MEDS: IBUPROFEN 600 MG TAB PO PRN ×3 (04:23→21:23)
[2017-06-29] MEDS: oxyCODONE/ACETAMINOPHEN 5 MG/325 MG TAB PO PRN ×5 (04:24→21:24)
[2017-06-29 05:48] LABS: AUTOMATED NEUTROPHIL # 11.2 TH/MM3 (1.8-7.7); BASOPHIL % 0.2 % (0.0-2.0); EOSINOPHIL % 0.1 % (0.0-4.0); HEMATOCRIT 28.8 % (35.0-46.0); HEMOGLOBIN 9.7 GM/DL (11.6-15.3); LYMPHOCYTE # 2.6 TH/MM3 (1.0-4.8); MEAN CELL VOLUME 88.7 FL (80.0-100.0); MEAN CORPUSCULAR HEMOGLOBIN 29.8 PG (27.0-34.0); MEAN CORPUSCULAR HGB CONC 33.6 % (32.0-36.0); MEAN PLATELET VOLUME 10.3 FL (7.0-11.0); MONO % 8.2 % (0.0-8.0); MONOCYTE # 1.2 TH/MM3 (0-0.9); NEUT % 74.5 % (16.0-70.0); PLATELET COUNT 161 TH/MM3 (150-450); RED BLOOD COUNT 3.25 MIL/MM3 (4.00-5.30); RED CELL DISTRIBUTION WIDTH 13.9 % (11.6-17.2)
[2017-06-29] MEDS ORDERED: ceFAZolin 2 GM/DEX PREMIX 50 ML IV ONE (07:00)
[2017-06-29 07:46] VITALS: BP 111/66; PULSE 53; RESP 18; TEMP 97.9; O2SAT 100
[2017-06-29] MEDS: DOCUSATE SODIUM 50 MG/SENNA 8.6 MG TAB PO PRN (08:40)
--- NOTE | 2017-06-29 08:59 | HHI.OB ---
Subjective Post Operative Day: 1 Objective Vitals/I&O Vital Signs Date Time Temp Pulse Resp B/P (MAP) Pulse Ox O2 Delivery O2 Flow Rate FiO2 06/29/17 07:46 53 18 111/66 (81) 06/29/17 07:46 97.9 100 06/29/17 03:57 98.1 58 17 123/71 (88) 06/28/17 23:57 97.8 51 17 114/62 (79) 06/28/17 20:01 97.5 56 17 121/78 (92) 06/28/17 15:09 51 20 119/69 (86) 97 06/28/17 14:35 97.5 06/28/17 10:05 98.2 18 Result Diagram: 06/29/17 0508 Objective Remarks GENERAL: Well-nourished, well-developed patient. CARDIOVASCULAR: Regular rate and rhythm without murmurs, gallops, or rubs. RESPIRATORY: Breath sounds equal bilaterally. No accessory muscle use. ABDOMEN/GI: Abdomen soft, non-tender, bowel sounds present. Incision: DRESSING. Clean, dry and intact. Fundus: Firm, non-tender at umbilicus. GENITOURINARY: Light to moderate bleeding. EXTREMITIES: No cyanosis or edema, non-tender, without signs of DVT. Medications and IVs Current Medications Medications (Trade) Dose Ordered Sig/Aidee Route Start Time Stop Time Status Last Admin Lactated Ringer's 1,000 ml @ 100 mls/hr Q10H IV 06/28/17 18:06 06/29/17 14:05 06/28/17 23:20 Oxytocin 500 ml @ 100 mls/hr UNSCH X1 PRN IV 06/28/17 18:15 06/29/17 18:14 06/28/17 15:05 (NS Flush) 2 ml BID IV FLUSH 06/28/17 21:00 (NS Flush) 2 ml UNSCH PRN IV FLUSH 06/28/17 13:15 (Mylicon Chew) 80 mg QID PRN PO 06/28/17 13:15 (Tylenol) 650 mg Q6H PRN PO 06/28/17 13:15 (Motrin) 600 mg Q6H PRN PO 06/28/17 13:15 06/29/17 04:23 (Percocet 5-325 Mg) 1 tab Q4H PRN PO 06/28/17 13:15 (Percocet 5-325 Mg) 2 tab Q4H PRN PO 06/28/17 13:15 06/29/17 08:39 (Lidya-Colace) 2 tab Q12H PRN PO 06/28/17 13:15 06/29/17 08:40 (M-M-R Ii Inj) 0.5 ml ONCE ONCE SQ 06/29/17 16:00 06/29/17 16:01 (Boostrix Inj) 0.5 ml ONCE ONCE IM 06/29/17 16:00 06/29/17 16:01 (Zofran Inj) 4 mg Q6H PRN IV PUSH 06/28/17 13:15 06/28/17 18:14 ([facility]) NO SYSTEMIC NARCOTICS TO BE GIVEN FO... UNSCH PRN .XX 06/28/17 12:20 06/29/17 12:19 (Narcan Inj) 0.4 mg UNSCH PRN IV PUSH 06/28/17 12:20 06/29/17 12:19 (Benadryl Inj) 25 mg Q6H PRN IV PUSH 06/28/17 12:20 06/29/17 12:19 (Benadryl) 50 mg Q6H PRN PO 06/28/17 12:20 06/29/17 12:19 ([facility]) ALL NURSING DEPARTMENTS UNSCH PRN .XX 06/28/17 12:20 06/29/17 12:19 Assessment/Plan Problem List: (1) S/P repeat low transverse ICD Codes: Z98.891 - History of uterine scar from previous surgery (2) Anemia ICD Codes: D64.9 - Anemia, unspecified (3) S/P tubal ligation ICD Codes: Z98.51 - Tubal ligation status Assessment and Plan POD #1 C/ WITH TUBAL PT DOING WELL PT NOT KEEPING UP WITH TAKING PAIN MEDICATION, SHE IS ENCOURAGED TO DO SO SHE WILL SHOWER TODAY AND REMOVE DRESSING AND BONDING WITH ROUTINE CARE Discharge Planning CONSIDER DC TOMORROW Connie Swenson June 29, 2017 08:59
[2017-06-29 12:03] VITALS: BP 116/65; PULSE 61; RESP 18; TEMP 98.2
[2017-06-29] MEDS ORDERED: MEASLES, MUMPS, RUBELLA VACCINE 0.5 ML VIAL SQ ONE (16:00)
[2017-06-29] MEDS ORDERED: DIPHTH/TETANUS/ACEL PERTUSSIS (BOOSTER) 0.5 ML VIAL/PFS IM ONE (16:00)
[2017-06-29 16:40] VITALS: BP 114/62; PULSE 58; RESP 18; TEMP 98.1
[2017-06-29 20:00] VITALS: BP 112/58; PULSE 67; RESP 6; TEMP 98; O2SAT 98
[2017-06-30] MEDS: oxyCODONE/ACETAMINOPHEN 5 MG/325 MG TAB PO PRN ×5 (01:41→20:22)
[2017-06-30] MEDS: IBUPROFEN 600 MG TAB PO PRN (06:01)
[2017-06-30] MEDS: DOCUSATE SODIUM 50 MG/SENNA 8.6 MG TAB PO PRN ×2 (06:01→20:22)
[2017-06-30 08:00] VITALS: BP 116/68; PULSE 62; RESP 18; TEMP 98.2
--- NOTE | 2017-06-30 08:44 | HHI.OB ---
Subjective Post Operative Day: 2 Objective Vitals/I&O Vital Signs Date Time Temp Pulse Resp B/P (MAP) Pulse Ox O2 Delivery O2 Flow Rate FiO2 06/29/17 20:00 67 6 112/58 (76) 98 06/29/17 20:00 98.0 06/29/17 16:40 58 114/62 (79) 06/29/17 16:40 98.1 18 06/29/17 12:03 98.2 61 18 116/65 (82) Result Diagram: 06/29/17 0508 Objective Remarks GENERAL: Well-nourished, well-developed patient. CARDIOVASCULAR: Regular rate and rhythm without murmurs, gallops, or rubs. RESPIRATORY: Breath sounds equal bilaterally. No accessory muscle use. ABDOMEN/GI: Abdomen soft, non-tender, bowel sounds present. Incision:Clean, dry and intact. Fundus: Firm, non-tender at umbilicus. GENITOURINARY: Light to moderate bleeding. EXTREMITIES: No cyanosis or edema, non-tender, without signs of DVT. Medications and IVs Current Medications Medications (Trade) Dose Ordered Sig/Aidee Route Start Time Stop Time Status Last Admin (NS Flush) 2 ml BID IV FLUSH 06/28/17 21:00 (NS Flush) 2 ml UNSCH PRN IV FLUSH 06/28/17 13:15 (Mylicon Chew) 80 mg QID PRN PO 06/28/17 13:15 (Tylenol) 650 mg Q6H PRN PO 06/28/17 13:15 (Motrin) 600 mg Q6H PRN PO 06/28/17 13:15 06/30/17 06:01 (Percocet 5-325 Mg) 1 tab Q4H PRN PO 06/28/17 13:15 (Percocet 5-325 Mg) 2 tab Q4H PRN PO 06/28/17 13:15 06/30/17 06:01 (Lidya-Colace) 2 tab Q12H PRN PO 06/28/17 13:15 06/30/17 06:01 (Zofran Inj) 4 mg Q6H PRN IV PUSH 06/28/17 13:15 06/28/17 18:14 Assessment/Plan Problem List: (1) S/P repeat low transverse ICD Codes: Z98.891 - History of uterine scar from previous surgery (2) Anemia ICD Codes: D64.9 - Anemia, unspecified (3) S/P tubal ligation ICD Codes: Z98.51 - Tubal ligation status Assessment and Plan POD #2 C/S WITH TUBAL PT DOING WELL PT WANTING MOTRIN AND PAIN MEDICINE TOGETHER SHE FEELS THE WAY IT WAS PRESCRIBED WASN'T GETTING HER THROUGH, WE WILL CHANGE ORDER AND BONDING WITH ROUTINE CARE Discharge Planning CONSIDER DC HOME TODAY OR TOMORROW Connie Swenson June 30, 2017 08:44
[2017-06-30 09:00] VITALS: BP 116/62; PULSE 18
[2017-06-30 09:20] VITALS: BP 116/62; PULSE 18; RESP 18; TEMP 98.2
[2017-06-30] MEDS ORDERED: MORPHINE SULFATE 4 MG/ML INJ IV PUSH ONE (09:30)
[2017-06-30] MEDS: IBUPROFEN 400 MG TAB PO PRN ×3 (11:51→20:23)
[2017-06-30 19:45] VITALS: BP 131/73; PULSE 70; RESP 18; TEMP 97.8
[2017-07-01] MEDS: IBUPROFEN 400 MG TAB PO PRN ×3 (00:19→09:13)
[2017-07-01] MEDS: oxyCODONE/ACETAMINOPHEN 5 MG/325 MG TAB PO PRN ×3 (00:19→09:12)
[2017-07-01 07:30] VITALS: BP 104/61; PULSE 64; RESP 20; TEMP 97.8
[2017-07-01] MEDS ORDERED: IBUP1TAB5 PO (08:26)
[2017-07-01] MEDS ORDERED: OXYC1TAB63 PO (08:26)
--- NOTE | 2017-07-01 09:01 | HHI.OB ---
Subjective Post Operative Day: 3 Objective Vitals/I&O Vital Signs Date Time Temp Pulse Resp B/P (MAP) Pulse Ox O2 Delivery O2 Flow Rate FiO2 07/01/17 07:30 97.8 64 20 104/61 (75) 06/30/17 19:45 97.8 70 18 131/73 (92) 06/30/17 09:20 18 116/62 (80) 06/30/17 09:20 98.2 18 06/30/17 09:00 18 116/62 (80) Result Diagram: 06/29/17 0508 Objective Remarks GENERAL: Well-nourished, well-developed patient. CARDIOVASCULAR: Regular rate and rhythm without murmurs, gallops, or rubs. RESPIRATORY: Breath sounds equal bilaterally. No accessory muscle use. ABDOMEN/GI: Abdomen soft, non-tender, bowel sounds present. Incision:Clean, dry and intact. Fundus: Firm, non-tender at umbilicus. GENITOURINARY: Light to moderate bleeding. EXTREMITIES: No cyanosis or edema, non-tender, without signs of DVT. Medications and IVs Current Medications Medications (Trade) Dose Ordered Sig/Aidee Route Start Time Stop Time Status Last Admin (NS Flush) 2 ml BID IV FLUSH 06/28/17 21:00 (NS Flush) 2 ml UNSCH PRN IV FLUSH 06/28/17 13:15 (Mylicon Chew) 80 mg QID PRN PO 06/28/17 13:15 (Tylenol) 650 mg Q6H PRN PO 06/28/17 13:15 (Percocet 5-325 Mg) 1 tab Q4H PRN PO 06/28/17 13:15 (Percocet 5-325 Mg) 2 tab Q4H PRN PO 06/28/17 13:15 07/01/17 04:34 (Lidya-Colace) 2 tab Q12H PRN PO 06/28/17 13:15 06/30/17 20:22 (Zofran Inj) 4 mg Q6H PRN IV PUSH 06/28/17 13:15 06/28/17 18:14 (Motrin) 400 mg Q4HR PRN PO 06/30/17 09:15 07/01/17 04:34 Assessment/Plan Problem List: (1) S/P repeat low transverse ICD Codes: Z98.891 - History of uterine scar from previous surgery (2) Anemia ICD Codes: D64.9 - Anemia, unspecified (3) S/P tubal ligation ICD Codes: Z98.51 - Tubal ligation status Assessment and Plan POD #3 C/S WITH TUBAL PT DOING WELL PAIN MANAGED WELL WITH ORAL PAIN MEDICATION AND BONDING WITH ROUTINE CARE Discharge Planning DC HOME TODAY Connie Swenson July 01, 2017 09:01
--- NOTE | 2017-07-01 09:03 | HHI.DCPOC ---
Discharge Care Plan Diagnosis: (1) S/P repeat low transverse (2) S/P tubal ligation Your Health Problems Are: delivery Report Symptoms to Your Doctor -Temperature above 100.5 degrees -Redness, of incision or excessive or foul smelling drainage -Unusual pain or calf pain -Increased vaginal bleeding -Painful or difficulty urinating -Feelings of extreme sadness or anxiety after 2 weeks Goals to Promote Your Health * To prevent worsening of your condition and complications * To maintain your health at the optimal level Directions to Meet Your Goals Take your medications as prescribed Follow your dietary instruction Follow activity as directed Ensure plenty of rest for recovery Drink fluids for hydration Keep your appointments as scheduled Take your immunizations and boosters as scheduled If your symptoms worsen call your PCP, if no PCP go to Urgent Care Center or Emergency Room Smoking is Dangerous to Your Health. Avoid second hand smoke Call the 24-hour crisis hotline for domestic abuse at Connie Swenson July 01, 2017 09:03
--- NOTE | 2017-07-01 09:06 | HHI.DS ---
Admission Date June 28, 2017 at 09:46 Discharge Date: July 01, 2017 Admitting Diagnosis TERM PREVIOUS C SECTION DESIRES STERILIZATION Diagnosis: (1) S/P tubal ligation ICD Codes: Z98.51 - Tubal ligation status (2) S/P repeat low transverse ICD Codes: Z98.891 - History of uterine scar from previous surgery Delivery Date: June 28, 2017 : Repeat Infant: Male Brief History Patient is a 26 year old at 39-4/7 weeks gestation who presents today for repeat and bilateral tubal ligation. She denies any vaginal bleeding or discharge. No gush or leaking of fluid. Positive movement. Occasional contractions. No complications with this . 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 Read complete instructions carefully before using. Pantoprazole (Protonix) 40 Mg Tab 40 MG PO DAILY for Reflux for 30 Days, #30 TAB 1 Refill Vit-Iron Carbonyl ( Plus Iron 29-1 mg) 29 Mg Iron-1 Mg Tab 1 TAB PO DAILY for Nutritional Supplement, #30 TAB 0 Refills Discontinued Medications: Aspirin (Aspirin Children's) 81 Mg Chew 81 MG CHEW DAILY, TAB 0 Refills Connie Swenson July 01, 2017 09:06
== END 2017-07-01 12:07 | disposition home or self-care (01) | DRG 766 ==
LOC: H2EB 09:46 → H1EA 14:53
PROVIDERS: ADMIT Obstetrics & Gynecology; ATTEND Obstetrics & Gynecology
PROC: 10D00Z1 Extraction of Products of Conception, Low, Open Approach (ICD-10-PCS; principal; 2017-06-28)
PROC: 0UB70ZZ Excision of Bilateral Fallopian Tubes, Open Approach (ICD-10-PCS; 2017-06-28)
DX: O34.219 Maternal care for unspecified type scar from previous cesarean delivery (principal); D64.9 Anemia, unspecified; Z30.2 Encounter for sterilization; O99.02 Anemia complicating childbirth; Z79.899 Other long term (current) drug therapy; Z88.1 Allergy status to other antibiotic agents; Z79.82 Long term (current) use of aspirin; O99.52 Diseases of the respiratory system complicating childbirth; J45.909 Unspecified asthma, uncomplicated; K21.9 Gastro-esophageal reflux disease without esophagitis; O99.62 Diseases of the digestive system complicating childbirth; Z3A.39 39 weeks gestation of pregnancy; Z37.0 Single live birth
CPT/HCPCS: 59025; 80307; 81001; 85025; 86850; 86900; 86901; 87086; 88302; 90715; J0131; J0360; J0690; J1100; J2270; J2274; J2370; J2405; J2590; J7120